=== PATIENT | female | born 1965 | race Caucasian/White ===

== ENCOUNTER → 2024-03-24 09:45 | Outpatient (REF) | payer OTHER, SELFPAY | LOC: HWRAD 09:45 | PROVIDERS: ATTENDING PHYSICIAN Obstetrics & Gynecology Gynecologic Oncology; FAMILY PHYSICIAN Family Medicine | DX: D07.1 Carcinoma in situ of vulva (principal) | CPT/HCPCS: 71046; 93005 ==

== ENCOUNTER 2024-04-14 06:23 | Day surgery (SDC) | payer OTHER, SELFPAY ==
[2024-04-02 08:44] VITALS: BMI 27.4
[2024-04-14] VITALS (9 sets, daily range): BP systolic 97–121; BP diastolic 58–74; BMI 27.4
[2024-04-14] MEDS: NEURONTIN 300 MG PO (10:30)
[2024-04-14] MEDS: CELEBREX 200 MG PO (10:30)
[2024-04-14] MEDS: NORMOSOL-R 1000 IV (10:31)
[2024-04-14] MEDS: TYLENOL 1000 MG PO (10:31)
--- NOTE | 2024-04-14 14:09 | OR.RPT ---
Operative Report
Operative Report
Date of surgery: April 14, 2024
Preoperative diagnosis Vulvar intraepithelial neoplasia 3
Postop diagnosis: Same
Surgeon: Sebastián Souza MD
Assist: Chaz Boykin PA-C
The assistance of Chaz Boykin was required due to the complexity of the procedure. During the procedure Chaz Boykin assisted with retraction, resection, and closure of the wound.
Anesthesia General LMA intubation
Procedure:
1. COlposcopy of vulva with biopsy
2. partial simple vulvectomy (posterior right and left vulva and a portion of the perineal body)
Estimated blood loss 5 cc
Complications : none
Procedure in detail: This patient is brought to the operating room for definitive excision of recently diagnosed severe dysplasia involving vulva. She was placed in supine position, general anesthesia was induced and she was intubated with LMA.
She was positioned with yellowfin stirrups in dorsal lithotomy, hair involving right and left labia perineal body and perianal skin was clipped.
the patient was prepped with ChloraPrep on the skin and Betadine and vagina. Timeout procedure was carried out she was properly identified, she received Ancef 2 g IV for prophylaxis. The skin was soaked in acetic acid 0.25% for 3 minutes and the
outline of the lesion was better defined. We noted that along the left labia minora under the clitoral null anterior urethral meatus there are hyperpigmented nevi. A more prominent portion of this hyperpigmented nevi along the anterior aspect of
left labia minora was excised and submitted to pathology for frozen section. Eventually just returned back as normal skin with no evidence of dysplasia or invasive cancer. Prior to making skin incision the incision line was infiltrated with 1%
lidocaine with epinephrine. Skin incision was made in an elliptical fashion involving the posterior vulva, including vaginal fourchette, and also extended to the left side including left labia minora.. Skin incision was made with electrocautery
was used to excise skin and subcutaneous tissue down to the level of deep fat. Good hemostasis was established the specimen was tagged using double strands at the anus 12:00 margin on the perineal body, single strand suture was placed on the right
labia minora apex.. I used a series of horizontal mattress sutures using 3-0 Monocryl to reapproximate this opening of the skin and and then continued similarly along the posterior aspect of the right and left labia minora.. I examined the anus
and vagina and there was no injury or communication. 10 cc 0.25% Marcaine was applied to the incision. Silvadene was applied to the incision and dressing was applied. Counts of laps instruments and needle was correct x 2. I was present and
scrubbed for entire procedure as dictated above.
Disposition: To PACU extubated stable
== END 2024-04-14 15:35 | disposition home or self-care (01) ==
LOC: SDS 06:23
PROVIDERS: ATTENDING PHYSICIAN Obstetrics & Gynecology Gynecologic Oncology; FAMILY PHYSICIAN Family Medicine; OTHER PHYSICIAN Obstetrics & Gynecology
DX: D07.1 Carcinoma in situ of vulva (principal); L81.4 Other melanin hyperpigmentation
CPT/HCPCS: 56620; 56821; 88305; 88309; 88332; 36415; 86850; 86900; 86901; 88331; 88341; 88342

== ENCOUNTER 2025-05-01 23:04 | Emergency (ER) | payer OTHER, SELFPAY ==
[2025-05-01 23:06] VITALS: BP 158/104
--- NOTE | 2025-05-01 23:59 | ED.GENMED ---
History of Present Illness
General
Chief Complaint: Skin Surface Trauma
Source: patient
Exam Limitations: none
Time Seen by Provider: 05/01/25 23:46
Nursing documentation reviewed up to this point in time: agreed with
History of Present Illness
History of Present Illness:
Patient presents to ED secondary to right index finger laceration, which occurred approximately 4 hours prior to arrival, when she was accidentally bitten by her neighbors dog. Denies any other injuries. Dog's vaccinations are up-to-date, per
neighbor. Patient herself states that her vaccinations are up-to-date.
Review of Systems
Review of Systems
Allergies reviewed?: Yes
All Other Systems: ROS reviewed and negative except as documented in HPI and ROS
Constitutional: Reports no symptoms
Musculoskeletal: Reports no symptoms
Skin: Reports other (Finger laceration after dog bite)
Neurological: Reports no symptoms
Phy Exam
Physical Exam
Physical Exam:
Physical Exam
General: no apparent distress, not acutely ill. afebrile
Head: nc/at. eomi
Neck: supple. no meningeal signs.
Neuro: alert and oriented x3. no focal neurological deficits
Skin: an approx 3cm vertical laceration over volar surface of right distal 2nd phalanx, crossing into MIP, without active bleeding
Psychiatric: well kept. interactive and cooperative
Extremities: no edema. no calf tenderness.
Course
Vital Signs
Initial and Last Documented VS:
Initial Vital Signs
Temp Pulse Resp BP Pulse Ox
98.1 F 84 20 158/104 100
05/01/25 23:06 05/01/25 23:06 05/01/25 23:06 05/01/25 23:06 05/01/25 23:06
Last Documented Vital Signs
Temp Pulse Resp BP Pulse Ox
98.1 F 84 20 158/104 100
05/01/25 23:06 05/01/25 23:06 05/01/25 23:06 05/01/25 23:06 05/01/25 23:59
Procedures
Laceration Closure
Right Volar Second Finger:
Status of Wound: clean
Size of Wound in cm: 4
Description of Wound Edges: sharp
Preparation: cleaned with saline and cleaned with Betadine
Anesthesia: 1% Lidocaine
Revision/Debridement: routine- no revision
Type of Closure: single layer closure
Skin Closure Material: 5-0 nylon
Number of sutures: 4
MDM/Problems Addressed
MDM/Problems Addressed:
Wound is loosely approximated with placement of 4 sutures, after soaking the affected finger in diluted Betadine solution and irrigated with saline afterwards. Aluminum foam splint applied to keep the finger straight. Prophylactic antibiotic
Augmentin ordered for 3 days, along with recommendation to follow-up PCP for reevaluation, including suture removal in 7 to 10 days. Patient expresses understanding, at time of discharge, to the care of her spouse.
*Pulse Oximetry
SaO2: 100
Oxygen Mode of Delivery: Room air
Patient hypoxic: no
*Critical Care Note
Total Time (30-74mins, 75-104mins- exclusive of procedures): Not Applicable
ED Attending Note
-
Portions of this chart may have been created with voice recognition software.� Occasional wrong word or��sound alike� substitutions may have occurred due to the inherent limitations of voice recognition software.
Discharge Plan
Departure
Patient Disposition: Home (Routine Discharge)
Date of Disposition: 05/02/25
Time of Disposition: 00:12
Patient with high blood pressure during this ER visit?: Yes
Condition: Good
Discharge Problem:
Dog bite, Finger laceration
Instructions: Taking care of cuts, scrapes, and puncture wounds, Stitches - ED discharge instructions, Animal bites - ED discharge instructions
Prescriptions:
New
amoxicillin-pot clavulanate 875-125 mg tablet
1 tab PO Q12H Qty: 6 0RF
No Action
bupropion HCl [Wellbutrin SR] 150 mg Tablet Sustained-Release 12 Hr
150 mg PO DAILY
valsartan-hydrochlorothiazide 160-12.5 mg Tablet
1 tab PO DAILY
cyanocobalamin (vitamin B-12)
1 dose PO DAILY
Activity Restrictions/Additional Instructions:
As discussed, please follow-up with your primary care physician for reevaluation, including suture removal in 7 days. Your prescription has been sent exactly to [facility] pharmacy in [place].
Interventions
Interventions:
*Risk Screen - Suicide Last Done: 05/01/25 23:51
*General Assessment Last Done: 05/01/25 23:51
*Neglect/Abuse Screening Last Done: 05/01/25 23:51
*ED- Fall Risk Assessment Last Done: 05/01/25 23:51
*ED COVID-19 Vaccine History Last Done: 05/01/25 23:51
*Nursing Disposition Last Done: 05/02/25 00:41
ED-Skin Assessment Last Done: 05/01/25 23:51
Discharge Date and Time
Discharge Date/Time: 05/02/25 00:41
Print Language: PALESTINIAN
== END 2025-05-02 00:41 | disposition home or self-care (01) ==
LOC: EMR 23:04
PROVIDERS: EMERGENCY PHYSICIAN Emergency Medicine; FAMILY PHYSICIAN Family Medicine
DX: S61.210A Laceration without foreign body of right index finger without damage to nail, initial encounter (principal); W54.0XXA Bitten by dog, initial encounter
CPT/HCPCS: 12002; 99283